=== PATIENT | male | born 1980 | race Caucasian/White ===

== ENCOUNTER 2020-09-06 11:53 | Emergency (ER) | payer MEDICAID ==
[~2020-09-06] VITALS: Ht 170.2 cm; Wt 98.9 kg
[2020-09-06 12:01] VITALS: BP 118/71; Ht 170.2 cm; Wt 98.9 kg
== END 2020-09-06 13:30 | disposition home or self-care (01) ==
LOC: ED 11:53
DX: M25.571 Pain in right ankle and joints of right foot (principal); Z98.890 Other specified postprocedural states
CPT/HCPCS: Q0092